=== PATIENT | male | born 1965 | race Caucasian/White ===

== ENCOUNTER 2023-07-11 17:11 | Emergency (ER) | payer MEDICAID, OTHER ==
[~2023-07-11] VITALS: Ht 162.6 cm; Wt 76.8 kg
[2023-07-11] MEDS ORDERED: CEPH500T PO (19:51)
[2023-07-11] MEDS ORDERED: CYCL-839 PO (19:51)
[2023-07-11] MEDS ORDERED: ACET-1304 PO (19:51)
[2023-07-11 20:14] VITALS: BP 132/83; PULSE 68; RESP 18; TEMP 98
[2023-07-11 20:16] VITALS: O2SAT 99
== END 2023-07-11 20:25 | disposition home or self-care (01) ==
LOC: ER 17:11
DX: M79.662 Pain in left lower leg (principal); Z79.899 Other long term (current) drug therapy
CPT/HCPCS: 93971